=== PATIENT | male | born 1980 | race Caucasian/White ===

== ENCOUNTER 2018-11-07 12:10 | Day surgery (SDC) | payer OTHER ==
[2018-11-07] MEDS ORDERED: ceFAZolin 2 GM/50 ML 2 GM/50 ML BAG IV ONE ×2 (12:30→17:03)
[2018-11-07] MEDS ORDERED: LACTATED RINGERS 1,000 ML IV ONE (12:34)
--- NOTE | 2018-11-07 13:25 | ANESTHESIA ---
Pre-Anesthesia VS, & Labs - Diagnosis left knee meniscus tear - Procedure Left knee arthroscopy, meniscus debridement Vital Signs: Temp Pulse Resp BP Pulse Ox 36.4 C L 63 18 122/80 99 11/07/18 12:43 11/07/18 12:43 11/07/18 12:43 11/07/18 12:43 11/07/18 12:43 Height 5 ft 8 in Weight (kg) 81.65 kg - NPO >8 hours Last Fluid Intake: black coffee at 1330 Home Medications and Allergies Home Medications: Ambulatory Orders No Known Home Medications 11/05/18 No Known Home Medications 11/05/18 Allergies/Adverse Reactions: Allergies Allergy/AdvReac Type Severity Reaction Status Date / Time terbinafine HCl * Allergy Rash Verified 11/05/18 12:45 [From Lamisil] Anes History & Medical History - Anesthetic History Anesthesia Complications: reports: Post-Operative Nausea/Vomiting - Medical History Cardiovascular: reports: None Pulmonary: reports: None Gastrointestinal: reports: None Urinary: reports: None Neuro: reports: None Musculoskeletal: reports: None Endocrine/Autoimmune: reports: None Blood Disorders: reports: None Skin: reports: None Smoking Status: Never smoker (quit chewing tobacco 2015) - Surgical History General: Appendectomy Orthopedic: Other (foreign body removal from foot) Exam General: Alert, Oriented x3, Cooperative, No acute distress Dental: WNL Mouth Openin Fingerbreadth Neck Mobility: Normal Mallampati classification: II Thyromental Distance: 4-6 cm Respiratory: Lungs clear, Normal breath sounds, No respiratory distress, No accessory muscle use Cardiovascular: Regular rate, Normal S1, Normal S2, No murmurs Mental/Cognitive Status: Alert/Oriented X3, Normal for patient Plan Anesthesia Type: General Regional Block: Per Surgeon's request for Post Op pain control Consent for Procedure(s) Verified and Reviewed: Yes Code Status: Attempt Resuscitation ASA classification: 1-Healthy patient Is this case an emergency?: No
[2018-11-07] MEDS ORDERED: DEXAMETHASONE 4 MG/ML VIAL ONE (13:41)
[2018-11-07] MEDS ORDERED: SCOPOLAMINE PATCH TOP ONE (13:41)
[2018-11-07] MEDS ORDERED: BUPIVACAINE 0.25% PF 30 ML VIAL ONE (15:45)
[2018-11-07] MEDS ORDERED: BUPIVACAINE 0.5% PF 30 ML VIAL INFIL ONE ×2 (16:50)
[2018-11-07] MEDS ORDERED: KETOROLAC 30 MG/ML VIAL IVP ONE (17:03)
[2018-11-07] MEDS ORDERED: LIDOCAINE-MPF 2% 5 ML VIAL IM ONE (17:03)
[2018-11-07] MEDS ORDERED: PROPOFOL 200 MG/20 ML VIAL IVP ONE (17:03)
[2018-11-07] MEDS ORDERED: DEXAMETHASONE 4 MG/ML VIAL IVP ONE (17:03)
[2018-11-07] MEDS ORDERED: ONDANSETRON 4 MG/2 ML VIAL IVP ONE (17:03)
[2018-11-07] MEDS ORDERED: ACETAMINOPHEN 1,000 MG/100 ML 100 ML IV ONE (17:03)
[2018-11-07] MEDS ORDERED: ONDANSETRON 4 MG/2 ML VIAL IVP PRN (17:29)
[2018-11-07] MEDS ORDERED: oxyCODONE 5 MG TABLET PO PRN (17:29)
[2018-11-07] MEDS ORDERED: HYDROmorphone 1 MG/ML CARPUJECT ONE ×2 (17:35→18:03)
[2018-11-07] MEDS ORDERED: fentaNYL 100 MCG/2 ML VIAL ONE (17:35)
--- NOTE | 2018-11-07 17:35 | OPERATIVE REPORT ---
Operative Report - General Procedure Date: 11/07/18 Planned Procedure: Left knee arthroscopic medial meniscus debridement Pre-Op Diagnosis: left knee medial meniscus tear Procedure Performed: left knee arthroscopic medial meniscus debridement Post Op Diagnosis: same - Procedure Note Primary Surgeon: Tony Pemberton Estimated Blood Loss (mL): 5 Complications: None - Other Other Information/Narrative: Indication For Surgery: This is a 38-year-old male who had insidious onset painful popping in the medial aspect of the left knee in December 2017. It was more prominent when doing heavy squatting. He did not have any locking up but there was mechanical symptoms pain and recurrent effusions. He did not respond to conservative measures. The risks, benefits, and alternatives were discussed. Risks include pain, bleeding, infection, damage to nearby structures and cartilage, lack of symptom relief, need for further surgery, DVT, PE, stroke, and . Written consent was obtained. Examination Under Anesthesia: ROM equal to the contralateral side. Stable dial at 30 & 90 degrees. Stable to varus and valgus stressing at 0 & 30 degrees. 1 a Conrado. Negative Pivot shift. No mechanical sensation Diagnostic Arthroscopy: A couple small soft appearing loose bodies. Synovium normal. Patella cartilage normal. Trochlear cartilage normal. Medial femoral condyle cartilage normal. Medial tibial plateau cartilage normal. Medial meniscus showed a degenerative type tear of the posterior horn and the body which was most prominent on the underside with both horizontal and longitudinal components. This was debrided to a stable base. ACL was normal. PCL was normal. Lateral femoral condyle cartilage normal. Lateral tibial plateau cartilage normal. Lateral meniscus normal. Procedure in Detail: The patient was met in the pre-operative hold area on the day of the procedure. The operative extremity was signed and questions were answered. The patient was brought to the operating room and a general anesthetic was administered. Supine position was used and bony prominences were padded. An examination under anesthesia was performed. Standard prepping and draping was performed. A time out confirmed patient identification, laterality, procedure, allergies, antibiotics, and images. An Esmarch was used to exsanguinate the limb and the tourniquet was elevated to 250 mmHg. Total tourniquet time was 22 minutes. A standard diagnostic arthroscopy of the knee was performed through anterolateral and anteromedial portal sites. The anteromedial portal was created under direct visualization after localizing with a spinal needle. The findings can be found above. I then proceeded to use a straight biter and a sucker shaver to debride the medial meniscus tear. I took a small edge of the normal-appearing superior leaflet so that it would not be extremely thin I then used a sucker shaver to debride all unstable and unhealthy portions of the inferior leaflet ensuring there to be a smooth transition. Final images were taken and all arthroscopic fluid and instruments were removed from the knee. The incisions were closed with buried monocryl sutures. Steri strips were applied. 30 cc of 0.25% Marcaine without epinephrine was injected near the portal sites. A sterile dressing and compression stocking was placed. The patient was awakened and transferred to recovery in stable condition.
[2018-11-07] MEDS ORDERED: oxyCODONE 5 MG TABLET ONE (18:26)
[2018-11-07 19:10] VITALS: BP 117/64
== END 2018-11-07 12:11 | disposition home or self-care (01) ==
LOC: SDS 12:10
PROVIDERS: ATTEND Orthopaedic Surgery
PROC: 0SBD4ZZ Excision of Left Knee Joint, Percutaneous Endoscopic Approach (ICD-10-PCS; principal; 2018-11-07 13:30)
DX: S83.241A Other tear of medial meniscus, current injury, right knee, initial encounter (principal); M23.41 Loose body in knee, right knee; Z87.891 Personal history of nicotine dependence
CPT/HCPCS: 29881; A9270; J0131; J0690; J1170; J3490; J7120

== ENCOUNTER 2020-07-11 14:01 | Outpatient (CLI) | payer OTHER | END 2020-07-11 14:02 | disposition home or self-care (01) | LOC: LAB 14:01 | PROVIDERS: ATTEND Ophthalmology | DX: Z01.812 Encounter for preprocedural laboratory examination (principal); Z20.828 Contact with and (suspected) exposure to other viral communicable diseases; H26.111 Localized traumatic opacities, right eye ==

== ENCOUNTER 2020-07-14 06:36 | Day surgery (SDC) | payer OTHER ==
[~2020-07-14 06:36] MED LIST: CYCLOPENTOLATE 1% OPHTH DROPS 2 ML ONE; KETOROLAC 0.45% OPHTH DROPS ONE; PHENYLEPHRINE 2.5% OPHTH 2 ML DROPS ONE; PROPARACAINE 0.5% OPHTH DROPS 15 ML ONE
[2020-07-14] MEDS ORDERED: MIDAZOLAM 2 MG/2 ML VIAL IVP ONE (06:37)
[2020-07-14] MEDS ORDERED: LACTATED RINGERS 500 ML IV ONE (07:00)
[2020-07-14] MEDS ORDERED: BRIMONIDINE 0.2% OPHTH DROPS 5 ML ONE (07:05)
[2020-07-14] MEDS ORDERED: EPINEPHrine 1 MG/ML AMP ONE (07:05)
[2020-07-14] MEDS ORDERED: TRIAMCIN/MOXIFLOX OPHTHALMIC 0.6 ML VIAL IO ONE ×2 (07:05→07:57)
[2020-07-14] MEDS ORDERED: TIMOLOL 0.5% OPHTH DROPS ONE (07:06)
[2020-07-14] MEDS ORDERED: BSS/LIDOCAINE/EPINEPHRINE 1 ML SYRINGE ONE (07:06)
[2020-07-14] MEDS ORDERED: VANCOMYCIN OPHTHALMI 8MG/0.8ML 8 MG/0.8 ML SYRINGE IO ONE (07:06)
--- NOTE | 2020-07-14 07:13 | ANESTHESIA ---
Pre-Anesthesia VS, & Labs - Diagnosis Right Traumatic Cataract - Procedure Right Phaco/IOL Vital Signs: Temp Pulse Resp BP Pulse Ox 36.9 C 75 16 123/71 97 07/14/20 06:45 07/14/20 06:45 07/14/20 06:45 07/14/20 06:45 07/14/20 06:45 Height: 5 ft 8 in Weight (kg): 84.3 kg Body Mass Index: 28.2 BMI Classification: Overweight - NPO >8 hours Home Medications and Allergies No Known Home Medications 11/05/18 Allergies/Adverse Reactions: Allergies Allergy/AdvReac Type Severity Reaction Status Date / Time terbinafine HCl * Allergy Rash Verified 11/05/18 12:45 [From Lamisil] Anes History & Medical History - Anesthetic History Anesthesia Complications: reports: Other-see comment (Had PONV with first knee surgery, told anesthesia for second surgery and had no PONV) Family history of Anesthesia Complications: Denies Family history of Malignant Hyperthermia: Denies - Medical History Cardiovascular: reports: None Pulmonary: reports: None Gastrointestinal: reports: None Urinary: reports: None Neuro: reports: None Musculoskeletal: reports: None Endocrine/Autoimmune: reports: None Blood Disorders: reports: None Skin: reports: Rosacea Smoking Status: Never smoker (quit chewing tobacco 2015) History of Cancer?: No - Surgical History General: Appendectomy Orthopedic: Other (Knee surgeries x 2) Exam General: Alert, Oriented x3, Cooperative, No acute distress Dental: WNL Mouth Opening: Greater than 4 Fingerbreadths Neck Mobility: Normal Mallampati classification: I Thyromental Distance: 4-6 cm Respiratory: Lungs clear, Normal breath sounds, No respiratory distress, No accessory muscle use Cardiovascular: Regular rate Mental/Cognitive Status: Alert/Oriented X3 Plan Anesthesia Type: MAC Consent for Procedure(s) Verified and Reviewed: Yes Code Status: Attempt Resuscitation ASA classification: 1-Healthy patient Is this case an emergency?: No
[2020-07-14] MEDS ORDERED: TIMOLOL 0.5% OPHTH DROPS OPTH ONE (07:56)
[2020-07-14] MEDS ORDERED: BRIMONIDINE 0.2% OPHTH DROPS 5 ML OPTH ONE (07:56)
[2020-07-14] MEDS ORDERED: EPINEPHrine 1 MG/ML AMP IR ONE (07:56)
[2020-07-14] MEDS ORDERED: CHONDR SULF/HYALURONATE SYRINGE IO ONE (07:56)
[2020-07-14] MEDS ORDERED: PROPARACAINE 0.5% OPHTH DROPS 15 ML EACHEYE ONE (07:57)
[2020-07-14] MEDS ORDERED: BSS/LIDOCAINE/EPINEPHRINE 1 ML SYRINGE IO ONE (07:57)
[2020-07-14] MEDS ORDERED: ROPIVACAINE 0.2% PF 10 ML AMPULE EPI ONE (07:58)
[2020-07-14 08:20] VITALS: BP 112/56
--- NOTE | 2020-07-14 09:32 | ANESTHESIA POST OP EVALUATION ---
Anesthesia Post Eval - Post Anesthesia Eval Vitals: Last Vital Signs Temp 36.3 C L 07/14/20 08:05 Pulse 69 07/14/20 08:20 Resp 16 07/14/20 08:20 BP 112/56 L 07/14/20 08:20 Pulse Ox 97 07/14/20 08:20 CV Function Including HR & BP: positive: Stable Pain Control: positive: Satisfactory Nausea & Vomiting: positive: Negative Mental Status: positive: Baseline Respiratory Status: Airway Patent Hydration Status: Satisfactory (Awake, alert, discharged home.) Anesthesia Complications: positive: None
--- NOTE | 2020-07-14 11:53 | OPERATIVE REPORT ---
DATE OF SERVICE: 07/14/2020 Physician: Raj Gunn MD PREOPERATIVE DIAGNOSIS: Visually significant cataract, right eye. This was his first cataract surgery. POSTOPERATIVE DIAGNOSIS: Visually significant cataract, right eye. This was his first cataract surgery. PROCEDURE: Phacoemulsification with posterior chamber intraocular lens implant, right eye. SURGEON: Raj Gunn MD ANESTHESIA: Monitored anesthesia care. COMPLICATIONS: None. OPERATIVE INDICATIONS: This is a 39-year-old man with progressive vision loss in the right eye due to 2 to 3+ central anterior nuclear opacity from trauma. Best corrected visual acuity was 20/25, with glare to light perception vision in the right eye. 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 He was consented at length concerning risks and benefits of cataract surgery, after which he expressed a desire to proceed with surgery. OPERATIVE PROCEDURE: The patient was taken to into OR #3 and placed under monitored anesthesia care. A surgical timeout was conducted confirming correct patient, correct procedure, and correct surgical site. He was given topical anesthesia, and prepped and draped in the usual sterile fashion. The eye was entered at the 12 and 9 o'clock positions. Intracameral Shugarcaine was injected into the anterior chamber, followed by Viscoat. A continuous-tear curvilinear capsulorrhexis was performed. The nucleus was hydrodissected and aspirated. The cortex was evacuated using automated infusion and aspiration. Provisc was injected in the capsular bag and a 22.0 diopter intraocular lens inserted into the bag. Infusion and aspiration was used to evacuate the viscoelastic materials. The eye was inflated to physiologic pressure using a balanced salt solution. Approximately 0.25 mL of a mixture of triamcinolone and moxifloxacin was injected transsclerally into the vitreous in the inferotemporal quadrant. An additional 0.55 mL of a mixture of triamcinolone, moxifloxacin and vancomycin was injected subconjunctivally in the superior quadrant for infection and inflammation prophylaxis. The wound integrity was checked with Weck-No sponges and the wound was leaking, so a single 10-0 nylon suture was placed across the wound and the wound was then found to be sealed. The patient was taken from the Operating Room in good condition and given postoperative instructions. TD: 07/14/2020 08:19 FLORENCIO
== END 2020-07-14 06:37 | disposition home or self-care (01) ==
LOC: SDS 06:36
PROVIDERS: ATTEND Ophthalmology
PROC: 08RJ3JZ Replacement of Right Lens with Synthetic Substitute, Percutaneous Approach (ICD-10-PCS; principal; 2020-07-14 07:30)
DX: H26.111 Localized traumatic opacities, right eye (principal); Z87.891 Personal history of nicotine dependence
CPT/HCPCS: 66984; A9270; J3490; J7120; V2632